=== PATIENT | male | born 1970 | race Caucasian/White ===

== ENCOUNTER 2024-06-05 13:25 | Emergency (ER) | payer BC, OTHER ==
[2024-06-05 14:17] VITALS: BP 140/77; PULSE 77
[2024-06-05] MEDS: Ketorolac 60 MG/2 ML SDV IM ONE (15:25)
== END 2024-06-05 16:25 | disposition home or self-care (01) ==
LOC: MW.ED 13:25
DX: M10.9 Gout, unspecified (principal); Z87.891 Personal history of nicotine dependence; Z79.899 Other long term (current) drug therapy; Z75.8 Other problems related to medical facilities and other health care
CPT/HCPCS: 73610; 73620; 96372; 99283; J1885